=== PATIENT | male | born 1985 | race Caucasian/White ===

== ENCOUNTER 2025-07-26 11:06 | Emergency (ER) | payer BC ==
[2025-07-26] MEDS: Bacitracin Oint 1 GM U/D Packet TOP ONE (12:25)
[2025-07-26] MEDS: Diphtheria,Pertussis(Acell),Tetanus Vaccine 0.5 ML Syringe IM ONE (12:25)
== END 2025-07-26 12:25 | disposition home or self-care (01) ==
LOC: CC.ED 11:06
DX: S62.631B Displaced fracture of distal phalanx of left index finger, initial encounter for open fracture (principal); Z88.0 Allergy status to penicillin; Z79.899 Other long term (current) drug therapy; W26.8XXA Contact with other sharp object(s), not elsewhere classified, initial encounter; Y93.89 Activity, other specified
CPT/HCPCS: 12002; 12011; 73130; 96374; 96375; 99284; J0690; J2003; J2270; 99283

== ENCOUNTER 2025-08-01 18:50 | Emergency (ER) | payer BC ==
[2025-08-01] MEDS: Bacitracin Oint 1 GM U/D Packet TOP ONE (19:09)
[2025-08-01 21:33] VITALS: BP 129/87; PULSE 72
== END 2025-08-01 21:00 | disposition home or self-care (01) ==
LOC: CC.ED 18:50
DX: S61.311A Laceration without foreign body of left index finger with damage to nail, initial encounter (principal); Z90.49 Acquired absence of other specified parts of digestive tract; Z88.0 Allergy status to penicillin; Z79.899 Other long term (current) drug therapy; W23.0XXA Caught, crushed, jammed, or pinched between moving objects, initial encounter
CPT/HCPCS: 11750; 12001; 73140-F1; 99283; 99283-25; J2003